=== PATIENT | female | born 1995 | race Caucasian/White ===

== ENCOUNTER → 2018-09-05 09:47 | Outpatient (CLI) | payer MEDICAID, SELFPAY ==
[2018-09-05 13:56] LABS: Basophils # 0.1 K/mm3 (0-0.2); Basophils % 0.9 % (0.1-2.0); Eosinophils # 0.3 K/mm3 (0.0-0.4); Eosinophils % 3.5 % (0.1-12.0); Hematocrit 38.4 % (37.0-47.0); Hemoglobin 12.3 g/dL (12.2-16.2); Lymphocytes % 25.6 % (10-50); Mean Corpuscular HGB Conc 32.2 g/dL (31.8-35.4); Mean Corpuscular Hemoglobin 27.2 pg (27.0-31.2); Mean Corpuscular Volume 84.4 fl (81-99); Mean Platelet Volume 7.9 fl (7.4-10.4); Monocytes # 0.5 K/mm3 (0.1-1.0); Monocytes % 6.3 % (1.7-9.3); Neutrophils # 4.9 K/mm3 (1.8-7.8); Neutrophils % 63.7 % (37.0-80.0); Platelet Count 341 K/mm3 (142-424); Red Blood Count 4.54 M/mm3 (4.20-5.40); Red Cell Distribution Width 12.5 % (11.5-17.5); White Blood Count 7.7 K/mm3 (4.8-10.8)
[2018-09-05 14:59] LABS: Alanine Aminotransferase 33 U/L (12-78); Albumin Level 4.2 gm/dL (3.4-5.0); Albumin/Globulin Ratio 1.2 (1.1-1.8); Alkaline Phosphatase 106 U/L (46-116); Aspartate Amino Transferase 20 U/L (15-37); Bilirubin,Total 0.4 mg/dL (0.2-1.0); Blood Urea Nitrogen 9 mg/dL (7-18); Calcium 9.2 mg/dL (8.5-10.1); Carbon Dioxide 24 mmol/L (21.0-32.0); Chloride 103 mmol/L (98-107); Chol/HDL Ratio 3.1 (1-3.5); Cholesterol 166 mg/dL (140-200); Creatinine,Serum 0.74 mg/dL (0.55-1.02); Estimated Glomerular Filt Rate 97 ml/min (>60); Free T4 (Free Thyroxine) 0.89 ng/dl (0.76-1.46); GFR (African American) 118 ML/MIN (>60); Globulin 3.4 gm/dl (1.3-3.2); Glucose 105 mg/dL (74-106); HDL Cholesterol 53 mg/dL (29-89); LDL Cholesterol 89 mg/dL (0-130); Sodium 138 mmol/L (136-145); Thyroid Stimulating Hormone 3.26 uIU/ml (0.358-3.740); Total Protein,Serum 7.6 gm/dL (6.4-8.2); Triglycerides 121 mg/dL (30-200); VLDL Cholesterol 24 mg/dL (0-40)
[2018-09-05 16:21] LABS: Hemoglobin A1C 5.5 % (0.0-7.0)
[2018-09-06 17:15] LABS: Triiodothyronine (T3) Free 3.4 pg/mL (2.0-4.4)
== END ==
PROVIDERS: PCP Nurse Practitioner Family; Visit Provider Nurse Practitioner Family
DX: R73.09 Other abnormal glucose (principal)
CPT/HCPCS: 36415; 80053; 80061; 83036; 84439; 84443; 84481; 85025

== ENCOUNTER 2020-08-09 17:00 | Outpatient (RCR) | payer BC, MEDICAID, SELFPAY | END 2020-08-23 13:34 | disposition home or self-care (01) | LOC: PT.CARL 17:00 | PROVIDERS: PCP Nurse Practitioner Family; Visit Provider Nurse Practitioner Family | DX: M54.2 Cervicalgia (principal) | CPT/HCPCS: 97010; 97014; 97110; 97140; 97163; G0283 ==